=== PATIENT | male | born 1995 | race African-American/Black ===

== ENCOUNTER 2019-04-03 16:31 | Emergency (ER) | payer BC, OTHER ==
[~2019-04-03] VITALS: Ht 172.7 cm; Wt 61.2 kg
[~2019-04-03 16:31] MED LIST: ALBUTEROL INHAL17 GM IH; ALLEGRA30 MG; AZITHROMYCIN PO; CLARITIN10 MG PO; DOXYCYCLINE 10100 MG PO; FLOVENT HFA 1110 MCG INH; IBUPROFEN 200200 M1 PO; MUCINEX TA600 MG/TA2 PO; PREDNISONE 20 M20 MG PO; PROAIR HFA8.5 GM INH; PROAIR HFA8.5 GM PO; TOBREX5 ML OP; ZPAK PO
[2019-04-03 17:34] LABS: AMP/METHAMP Negative (Negative); BARBITURATES Negative (Negative); BENZODIAZEPINES Negative (Negative); COCAINE Negative (Negative); METHADONE Negative (Negative); OPIATES Negative (Negative); PCP Negative (Negative)
[2019-04-03 18:30] LABS: ABSOLUTE NEUTROPHILS 2.9 thou/uL (1.4-8.2); BASOPHILS 0.7 % (0.0-2.0); HEMATOCRIT 41.6 % (42.0-52.0); HEMOGLOBIN 13.3 gm/dL (14.0-18.0); LYMPHOCYTES 30.1 % (24.0-44.0); MCH 23.6 pg (26.0-34.0); MCHC 31.9 g/dL (28.0-37.0); MCV 74.1 fL (80.0-100.0); PLATELET COUNT 194 thou/uL (150-400); POLYS 54.2 % (36.0-66.0); RBC 5.61 mil/uL (4.50-6.00); RDW 14.7 % (10.5-14.5); WBC 5.4 thou/uL (4.0-11.0)
[2019-04-03 18:40] LABS: CALCIUM 9.9 mg/dL (8.5-10.1); CREATININE 1.1 mg/dL (0.7-1.3); POTASSIUM 3.9 mmol/L (3.5-5.1)
[2019-04-03 18:45] LABS: ALBUMIN 4.1 g/dL (3.4-5.0); TOTAL BILIRUBIN 0.8 mg/dL (<0.1-1.0); TOTAL PROTEIN 7.8 g/dL (6.4-8.2)
[2019-04-03 19:19] VITALS: BP 117/77
--- NOTE | 2019-04-04 17:29 | EKG ---
[place] [address] [facility] [place] [address] ELECTROCARDIOGRAM REPORT Name: BALBIR DUMONT Room #: [id number] Admission: 04/03/19 Attend Phys: Discharge: 04/03/19 Date of : [birth year] Report #: [id number] THIS REPORT FOR: //name// [facility] ED Test Date: 2019-04-03 Test Time: 18:20:14 Pat Name: BALBIR DUMONT Department: Room: Gender: M House Servant: : 1995 Requested By: Zan Peterson Order Number: [id number] MD: Juwan Pitts Measurements Intervals [place] Rate: 68 P: 62 [place]: 145 QRS: 14 QRSD: 93 T: 46 QT: 382 QTc: 407 Interpretive Statements Sinus rhythm RSR' in V1 or V2, probably normal variant ST elev, probable normal early repol pattern Compared to ECG 09/08/2014 09:25:41 Sinus tachycardia no longer present Electronically Signed On 04-04-2019 17:29:38 FREIGHT [employer]OUTER by Juwan Pitts [email or web address] <ELECTRONICALLY SIGNED> By: Juwan Pitts MD, [facility] 04/04/19 1729 1820 182 Juwan Pitts MD, [facility] /EPI
== END 2019-04-03 19:21 | disposition home or self-care (01) ==
LOC: ER 16:31
PROVIDERS: Physician Assistant
DX: R55 Syncope and collapse (principal); J06.9 Acute upper respiratory infection, unspecified; J32.9 Chronic sinusitis, unspecified; F17.210 Nicotine dependence, cigarettes, uncomplicated; F12.90 Cannabis use, unspecified, uncomplicated; Z88.1 Allergy status to other antibiotic agents